=== PATIENT | male | born 1995 | race Two or more races ===

== ENCOUNTER 2020-02-24 16:52 | Emergency (ER) | payer OTHER ==
[~2020-02-24] VITALS: Ht 177.8 cm; Wt 72.6 kg
[2020-02-24 19:50] VITALS: BP 146/91
== END 2020-02-24 20:40 | disposition home or self-care (01) ==
LOC: ER 16:52
DX: S82.102A Unspecified fracture of upper end of left tibia, initial encounter for closed fracture (principal); W18.39XA Other fall on same level, initial encounter; Y93.39 Activity, other involving climbing, rappelling and jumping off; Y92.89 Other specified places as the place of occurrence of the external cause; Y99.8 Other external cause status
CPT/HCPCS: 29505; 73560

== ENCOUNTER 2024-07-12 12:01 | Emergency (ER) | payer MEDICAID, OTHER ==
[~2024-07-12] VITALS: Ht 175.3 cm; Wt 68.1 kg
--- NOTE | 2024-07-12 13:20 | DVH ---
CLINICAL INDICATION: Trauma TECHNIQUE: 2 radiographic views of the left clavicle were obtained. Comparison: None FINDINGS/IMPRESSION: There is a mildly displaced fracture of the mid left clavicle.
[2024-07-12] MEDS ORDERED: IBUP-1456 PO (14:06)
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
[2024-07-12 14:12] VITALS: BP 114/71; PULSE 80; RESP 19; TEMP 98.2; O2SAT 98
== END 2024-07-12 14:16 | disposition home or self-care (01) ==
LOC: ER 12:01
DX: S42.025A Nondisplaced fracture of shaft of left clavicle, initial encounter for closed fracture (principal); Z79.1 Long term (current) use of non-steroidal anti-inflammatories (NSAID); W05.2XXA Fall from non-moving motorized mobility scooter, initial encounter; Y93.89 Activity, other specified; Y92.89 Other specified places as the place of occurrence of the external cause; Y99.8 Other external cause status
CPT/HCPCS: 73000